=== PATIENT | female | born 1980 ===

== ENCOUNTER 2020-08-05 05:29 | Inpatient (IN) | payer OTHER ==
[2020-08-05] MEDS ORDERED: MIDAZOLAM HCL 2 MG/2 ML SINGLE DOSE VIAL ONE ×2 (07:40→09:39)
[2020-08-05] MEDS ORDERED: PROPOFOL 20 ML ONE ×3 (07:40→09:10)
[2020-08-05] MEDS ORDERED: SUCCINYLCHOLINE CHLORIDE 200 MG/10 ML SYRINGE ONE (07:40)
--- NOTE | 2020-08-05 08:21 | HP ---
History & Physical Update - History History: No Change - Physical Physical: No Change - Assessment Assessment: No Change - Plan Plan: No Change (Hysteroscopy, excision of uterine mass, D&C)
[2020-08-05] MEDS ORDERED: ceFAZolin SODIUM 1 GM VIAL IVPB ONE (08:40)
[2020-08-05] MEDS ORDERED: ceFAZolin SODIUM 1 GM VIAL ONE (08:52)
[2020-08-05] MEDS ORDERED: DEXAMETHASONE SOD PHOSPHATE 4 MG/1 ML VIAL ONE (08:52)
[2020-08-05] MEDS ORDERED: ALBUTEROL SO4 HFA INHALER IH ONE ×2 (09:43→09:50)
--- NOTE | 2020-08-05 09:43 | OP ---
Operative Note - Note: Operative Date: 08/05/20 Pre-Operative Diagnosis: Oligomenorrhea, morbid obesity, endometrial polyps Operation: Hysteroscopy, polypectomy, D&C Findings: Endometrial polyps Post-Operative Diagnosis: Same as Pre-op Surgeon: Kenneth Condon Anesthesiologist/GRINDING SUPERVISOR: Cyn Mcmanus Anesthesia: General Specimens Removed: Endometrial polyps, endometrial curettings Estimated Blood Loss (mls): 5 Blood Volume Replaced (mls): 0 Fluid Volume Replaced (mls): 500 Operative Report Dictated: Yes
[2020-08-05] MEDS ORDERED: ALBUTEROL SO4 0.083% IH SOL 2.5 MG/3 ML VIAL.NEB. NEB ONE ×6 (09:44→11:50)
[2020-08-05] MEDS: ALBUTEROL SO4 0.083% IH SOL 2.5 MG/3 ML VIAL.NEB. NEB SCH ×2 (09:50→10:05)
[2020-08-05] MEDS ORDERED: ACETAMINOPHEN INJECTION 100 ML IVPB ONE (10:33)
[2020-08-05] MEDS ORDERED: ONDANSETRON 4 MG/2 ML VIAL ONE ×2 (10:33→10:52)
[2020-08-05] MEDS ORDERED: methylPREDNISolone NA SUCC 125 MG/2 ML VIAL IVPB ONE (10:35)
[2020-08-05] MEDS ORDERED: methylPREDNISolone NA SUCC 125 MG/2 ML VIAL ONE (10:37)
[2020-08-05] MEDS ORDERED: ACETAMINOPHEN 1000 MG/100 ML VIAL (NON FORMULARY) IVPB ONE ×3 (10:40→23:18)
[2020-08-05] MEDS ORDERED: ONDANSETRON 4 MG/2 ML VIAL IVPUSH PRN (10:43)
[2020-08-05] MEDS ORDERED: oxyCODONE HCL 5 MG TABLET PO PRN (10:43)
[2020-08-05] MEDS ORDERED: ONDANSETRON 4 MG/2 ML VIAL IVPUSH ONE (10:45)
[2020-08-05] MEDS ORDERED: LACTATED RINGERS SOLUTION 1,000 ML IV SCH (10:45)
--- NOTE | 2020-08-05 11:43 | OP ---
DATE OF OPERATION: 08/05/2020 PREOPERATIVE DIAGNOSIS: Oligomenorrhea, morbid obesity, endometrial polyps. POSTOPERATIVE DIAGNOSIS: Oligomenorrhea, morbid obesity, endometrial polyps. PROCEDURE: Hysteroscopy, polypectomy, dilation and curettage. SURGEON: Kenneth Condon MD ANESTHESIOLOGIST: Cyn Mcmanus MD COMPLICATIONS: None. ESTIMATED BLOOD LOSS: 5 mL IV FLUIDS: 500 mL ANESTHESIA: General endotracheal. PATHOLOGY: Endometrial polyps, endometrial curettings. FINDINGS: Examination under anesthesia revealed a small mobile uterus. No pelvic or adnexal masses. Hysteroscopy revealed 3 or 4 endometrial polyps, otherwise normal uterine cavity. PROCEDURE: The patient was met preoperatively. Risks, benefits and alternatives of surgery were discussed in details. All questions were answered. The consent form was reviewed and discussed. The patient verbalized her understanding and requested to proceed with the surgery. The patient was brought to the OR with the IV running. She was placed on the surgical table in the supine position. The general endotracheal anesthesia was achieved without difficulty. The patient was then placed in a dorsal lithotomy position using adjustable Luis stirrups. She was examined under anesthesia with the findings as described above. The patient was then prepped and draped in the usual sterile fashion. A timeout was conducted as per standard protocol. A weighted speculum was introduced inside the vagina with good visualization of the cervix. The cervix was grasped with a single-tooth tenaculum. The cervical os was dilated to accommodate the size 23 Castro dilator. A Symphion hysteroscope was introduced inside the uterine cavity with the findings as described above. A Symphion resectoscope was then used to excise all of the endometrial polyps. The hysteroscope was then removed and endometrial curettage was performed. All of the tissue was sent to Pathology. The hysteroscope was once again placed inside the uterine cavity. A normal uterine cavity was visualized with good hemostasis. All of the instruments were then removed from the patient. Sponge, lap, instrument counts were correct. Good hemostasis was confirmed. The patient was returned to supine position and she was transferred to recovery room in stable condition. Hill [id number]
--- NOTE | 2020-08-05 12:15 | PN ---
Progress Note (short form) - Note Progress Note: Called to PACU for asthma exacerbation. PT had received decadron intr aoperatively and solucortef/nebulizer in PACU for severe bronchospasm. The bronchospasm had resolved for over an hour but acutely recurred. As she had already received a full dose of corticosteroids and was on nebulizer currently, decision was made to administer a small intravenous dose of epinephrine (10mcg) due to severe wheezing/bronchospasm. After 5-10min, the epinephrine took effect and the bronchospasm subsided substantially Pt's lung antoine cleared up significantly, and she also reported subjectively feeling "less tight" in the chest. Will speak with Dr Condon regarding pt status and need for possible admission.
[2020-08-05] MEDS ORDERED: ALBUTEROL SO4 2.5/IPRATROPIUM 0.5 INH SOL 3 ML VIAL.NEB. NEB SCH (12:30)
[2020-08-05] MEDS ORDERED: methylPREDNISolone NA SUCC 40 MG/1 ML VIAL IVPUSH SCH (14:15)
[2020-08-05] MEDS ORDERED: methylPREDNISolone NA SUCC 40 MG/1 ML VIAL IVPB ONE (14:15)
--- NOTE | 2020-08-05 15:55 | EKG ---
Test Reason : Blood Pressure : / mmHG Vent. Rate : 086 BPM Atrial Rate : 086 BPM P-R Int : 156 ms QRS Dur : 074 ms QT Int : 356 ms P-R-T Axes : 068 043 038 degrees QTc Int : 426 ms NORMAL SINUS RHYTHM POSSIBLE LEFT ATRIAL ENLARGEMENT ST ELEVATION, CONSIDER EARLY REPOLARIZATION BORDERLINE ECG NO PREVIOUS ECGS AVAILABLE Confirmed by MEE ACOSTA MD ([id number]) on 08/05/2020 3:55:01 PM Referred By: Confirmed By:MEE ACOSTA MD
[2020-08-05] MEDS ORDERED: methylPREDNISolone NA SUCC 40 MG/1 ML VIAL ONE (16:12)
[2020-08-05 16:53] LABS: BASO % 0.1 % (0-2.0); HEMATOCRIT 35.6 % (32.4-45.2); HEMOGLOBIN 11.7 GM/dL (10.7-15.3); LYMPH % 3.4 % (8-40); MCH 27.4 pg (25.7-33.7); MCHC 32.8 g/dl (32.0-36.0); MEAN CELL VOLUME 83.4 fl (80-96); MEAN PLT VOLUME 8.3 fl (7.5-11.1); MONO % 1.2 % (3.8-10.2); NEUT % 95.3 % (42.8-82.8); PLATELET COUNT 317 K/MM3 (134-434); RBC 4.26 M/mm3 (3.60-5.2); RDW 15.6 % (11.6-15.6); WHITE BLOOD COUNT 11.6 K/mm3 (4.0-10.0)
--- NOTE | 2020-08-05 17:10 | CON.PULM ---
Consult Consult Specialty:: PULM/CCM Referred by:: HUNTER Reason for Consultation:: SOB - History of Present Illness Chief Complaint: SOB History of Present Illness: 40 F, Intermittent Asthma. Managed by PRN Albuterol and more recently by Symbicort BID after she developed COVID19 infection February 2020. Received an outpatient course of ABX /steroids. Taken care of by Dr Hager. Recent PFTs prior to surgery but does not know re sults. Has been screened Negative for OSAS. Admitted for a D&C and polyp removal. Developed wheezing and possible stridor post op. Received decadron, Solumedrol, Solucortef, and Epinephrine. Currently feels clinically better. Does have some throat "soreness". No history of intubations. Unknown PEF. - History Source History Provided By: Patient Limitations to Obtaining History: No Limitations - Past Medical History Pulmonary: Yes: Asthma, Bronchitis. No: Cancer, COPD, O2 Dependent, Pneumonia, Previously Intubated, Pulmonary Embolus, Pulmonary Fibrosis, Sleep Apnea ...LMP: 07/12/20 - Smoking History Smoking history: Never smoked Have you smoked in the past 12 months: No Home Medications - Allergies Allergies/Adverse Reactions: Allergies Allergy/AdvReac Type Severity Reaction Status Date / Time shellfish derived Allergy Verified 08/05/20 07:34 Sulfa (Sulfonamide Allergy Verified 08/05/20 07:34 Antibiotics) sulfite Allergy Verified 08/05/20 07:34 IV CONTRAST Allergy Mild Uncoded 08/05/20 07:34 - Home Medications Home Medications: Ambulatory Orders Albuterol Sulfate Inhaler - [Ventolin Hfa Inhaler -] 1 puff IH PRN PRN 08/02/20 Budesonide/Formeterol Fumarate [SYMBICORT 160/4.5mcg -] 1 inh PO BID 08/02/20 Escitalopram Oxalate [Lexapro -] 20 mg PO HS 08/02/20 Pantoprazole Sodium 40 mg PO HS 08/02/20 Ursodiol 250 mg PO BID 08/02/20 hydrOXYzine PAMOATE [Vistaril -] 50 mg PO HS PRN 08/02/20 traZODone HCL [Trazodone HCl] 100 mg PO HS 08/02/20 metroNIDAZOLE [Flagyl -] 500 mg PO BID #14 tablet 08/05/20 Review of Systems - Review of Systems Constitutional: denies: Chills, Fever, Malaise, Night Sweats, Unintentional Wgt. Loss Eyes: reports: No Symptoms HENT: reports: No Symptoms Cardiovascular: reports: Shortness of Breath. denies: Chest Pain, Edema, Palpitations Respiratory: reports: Cough, SOB, Wheezing. denies: Hemoptysis, Orthopnea, PND, Snoring, SOB on Exertion Gastrointestinal: reports: No Symptoms Genitourinary: reports: No Symptoms Breasts: reports: No Symptoms Reported Musculoskeletal: reports: No Symptoms Integumentary: reports: No Symptoms Neurological: reports: No Symptoms Endocrine: reports: No Symptoms Hematology/Lymphatic: reports: No Symptoms Psychiatric: reports: No Symptoms Physical Exam Vital Sings: Vital Signs Temperature 98.9 F 08/05/20 09:45 Pulse Rate 79 08/05/20 15:00 Respiratory Rate 16 08/05/20 15:00 Blood Pressure 127/51 L 08/05/20 15:00 O2 Sat by Pulse Oximetry (%) 100 08/05/20 15:00 Constitutional: Yes: No Distress, Obese Eyes: Yes: Conjunctiva Clear, EOM Intact HENT: Yes: Atraumatic, Normocephalic Neck: Yes: Supple, Trachea Midline Cardiovascular: Yes: Regular Rate and Rhythm Respiratory: Yes: Cough, Diminished. No: Rales, Rhonchi, SOB, SOB on Exertion, Stridor, Tachypnea, Wheezes ...Inspection: Yes: WNL ...Clubbing: No Gastrointestinal: Yes: Normal Bowel Sounds, Soft, Abdomen, Obese Renal/: Yes: WNL Musculoskeletal: Yes: WNL Extremities: Yes: WNL Edema: No Peripheral Pulses WNL: Yes Integumentary: Yes: WNL Neurological: Yes: WNL, Alert, Oriented ...Motor Strength: WNL Psychiatric: Yes: WNL, Alert, Oriented Labs: CBC, BMP 08/05/20 15:30 Imaging - Results Chest X-ray: Report Reviewed, Image Reviewed Problem List - Problems (1) Acute exacerbation of extrinsic asthma Code(s): J45.901 - UNSPECIFIED ASTHMA WITH (ACUTE) EXACERBATION (2) Stridor Code(s): R06.1 - STRIDOR (3) Obesity Code(s): E66.9 - OBESITY, UNSPECIFIED Assessment/Plan Decadron BD TX PRN Symbicort BID Supplemental O2 as needed No indication for ABX. VTE prophylaxis Will follow Thank you. Dr Alves
[2020-08-05 17:18] LABS: ALBUMIN 3.2 g/dl (3.4-5.0); BILIRUBIN,TOTAL 0.3 mg/dL (0.2-1); BLOOD UREA NITROGEN 5.9 mg/dL (7-18); CALCIUM 8.9 mg/dL (8.5-10.1); CREATININE 0.8 mg/dL (0.55-1.3); POTASSIUM 4.1 mmol/L (3.5-5.1); TOT PROT 6.8 g/dl (6.4-8.2)
[2020-08-05 17:48] LABS: ANISOCYTOSIS 0; MACROCYTOSIS 0; PLATELET ESTIMATE NORMAL
[2020-08-05] MEDS: PANTOPRAZOLE 40 MG TABLET PO SCH (18:03)
[2020-08-05] MEDS: DEXAMETHASONE SOD PHOSPHATE 10 MG/1 ML VIAL IVPUSH SCH (18:06)
[2020-08-05 18:17] VITALS: BMI 38.1
--- NOTE | 2020-08-05 19:33 | HP ---
CHIEF COMPLAINT: SOB HISTORY OF PRESENT ILLNESS: 40 F h/o moderate asthma, obesity, COVID in 02/2020, depression, presents w/ SOB wheezing, s/p extubation for D&C. Patient presented with SOB/wheezing/cough after extubation, received Ancef reports remote h/o PCN allergy with angioedema/rash/wheezing. Patient received duonebs/steroids w/ improvement of SOB. Recent Travel: denies PAST MEDICAL HISTORY: as above PAST SURGICAL HISTORY: s/p D&C Social History: denies x3 Allergies shellfish derived Allergy (Verified 08/05/20 07:34) Sulfa (Sulfonamide Antibiotics) Allergy (Verified 08/05/20 07:34) sulfite Allergy (Verified 08/05/20 07:34) IV CONTRAST Allergy (Mild, Uncoded 08/05/20 07:34) PHYSICAL EXAMINATION Vital Signs - 24 hr 08/05/20 08/05/20 08/05/20 07:26 07:28 07:30 Temperature 98.6 F 98.6 F Pulse Rate 82 82 Respiratory 20 20 Rate Blood Pressure 142/78 142/78 O2 Sat by Pulse 100 100 100 Oximetry (%) 08/05/20 08/05/20 08/05/20 09:45 10:00 10:15 Temperature 98.9 F Pulse Rate 122 H 100 H 112 H Respiratory 90 H 24 H 24 H Rate Blood Pressure 131/71 130/71 O2 Sat by Pulse 90 L 95 95 Oximetry (%) 08/05/20 08/05/20 08/05/20 10:30 10:35 10:45 Temperature Pulse Rate 105 H 104 H 104 H Respiratory 22 H 20 21 H Rate Blood Pressure 135/61 132/70 136/62 O2 Sat by Pulse 100 100 100 Oximetry (%) 08/05/20 08/05/20 08/05/20 11:00 11:15 11:30 Temperature Pulse Rate 105 H 93 H 89 Respiratory 21 H 16 16 Rate Blood Pressure 131/77 135/53 L 124/57 L O2 Sat by Pulse 100 100 100 Oximetry (%) 08/05/20 08/05/20 08/05/20 11:45 11:50 12:00 Temperature Pulse Rate 90 108 H 118 H Respiratory 16 18 35 H Rate Blood Pressure 122/57 L 130/70 153/71 O2 Sat by Pulse 100 100 100 Oximetry (%) 08/05/20 08/05/20 08/05/20 12:05 12:10 12:15 Temperature Pulse Rate 112 H 112 H 95 H Respiratory 27 H 25 H 25 H Rate Blood Pressure 169/103 H 150/99 141/66 O2 Sat by Pulse 100 100 100 Oximetry (%) 08/05/20 08/05/20 08/05/20 12:30 12:45 13:00 Temperature Pulse Rate 91 H 100 H 103 H Respiratory 25 H 24 H 18 Rate Blood Pressure 137/80 138/104 H 134/66 O2 Sat by Pulse 100 100 100 Oximetry (%) 08/05/20 08/05/20 08/05/20 13:15 13:30 14:00 Temperature Pulse Rate 88 93 H 91 H Respiratory 19 20 18 Rate Blood Pressure 124/57 L 132/61 128/57 L O2 Sat by Pulse 100 100 100 Oximetry (%) 08/05/20 08/05/20 08/05/20 14:30 14:57 15:00 Temperature 98.2 F Pulse Rate 79 77 79 Respiratory 15 18 16 Rate Blood Pressure 123/51 L 112/50 L 127/51 L O2 Sat by Pulse 100 98 100 Oximetry (%) 08/05/20 08/05/20 08/05/20 15:30 16:00 16:15 Temperature Pulse Rate 80 86 82 Respiratory 16 18 18 Rate Blood Pressure 142/80 115/58 L 133/71 O2 Sat by Pulse 100 100 100 Oximetry (%) 08/05/20 08/05/20 08/05/20 16:30 17:00 18:20 Temperature 98.5 F Pulse Rate 78 88 Respiratory 18 18 Rate Blood Pressure 138/70 128/75 O2 Sat by Pulse 100 100 98 Oximetry (%) 08/05/20 18:32 Temperature 98.2 F Pulse Rate 77 Respiratory 18 Rate Blood Pressure 112/50 L O2 Sat by Pulse 98 Oximetry (%) GA AAox3, speaks in full sentences HEENT NC/AT, no nasal flaring, dry MM, dry cough, neck supple Chest diffuse wheezing b/l however adequate air entry, no increased WOB CVs S1, S2+, RRR Abd Soft, obese, NT, BS+ Ext no LE edema, no calf tenderness Laboratory Results - last 24 hr 08/05/20 08/05/20 08/05/20 06:35 06:35 15:30 WBC 11.6 H RBC 4.26 Hgb 11.7 Hct 35.6 MCV 83.4 MCH 27.4 MCHC 32.8 RDW 15.6 Plt Count 317 MPV 8.3 Absolute Neuts (auto) 11.1 H Neutrophils % 95.3 H D Neutrophils % (Manual) 77.0 Band Neutrophils % 19.0 Lymphocytes % 3.4 L D Lymphocytes % (Manual) 2.0 L Monocytes % 1.2 L D Monocytes % (Manual) 2 L Eosinophils % 0.0 D Eosinophils % (Manual) 0.0 Basophils % 0.1 Basophils % (Manual) 0.0 Myelocytes % (Man) 0 Promyelocytes % (Man) 0 Blast Cells % (Manual) 0 Nucleated RBC % 0 Metamyelocytes 0 Hypochromia 0 Platelet Estimate Normal Polychromasia 0 Poikilocytosis 0 Anisocytosis 0 Microcytosis 0 Macrocytosis 0 Sodium Potassium Chloride Carbon Dioxide Anion Gap BUN Creatinine Est GFR (CKD-EPI)AfAm Est GFR (CKD-EPI)NonAf Random Glucose Calcium Magnesium Total Bilirubin AST ALT Alkaline Phosphatase Total Protein Albumin Serum , Qual Negative Blood Type O POSITIVE Antibody Screen Negative 08/05/20 15:30 WBC RBC Hgb Hct MCV MCH MCHC RDW Plt Count MPV Absolute Neuts (auto) Neutrophils % Neutrophils % (Manual) Band Neutrophils % Lymphocytes % Lymphocytes % (Manual) Monocytes % Monocytes % (Manual) Eosinophils % Eosinophils % (Manual) Basophils % Basophils % (Manual) Myelocytes % (Man) Promyelocytes % (Man) Blast Cells % (Manual) Nucleated RBC % Metamyelocytes Hypochromia Platelet Estimate Polychromasia Poikilocytosis Anisocytosis Microcytosis Macrocytosis Sodium 140 Potassium 4.1 Chloride 107 Carbon Dioxide 26 Anion Gap 7 L BUN 5.9 L Creatinine 0.8 Est GFR (CKD-EPI)AfAm 108.39 Est GFR (CKD-EPI)NonAf 93.52 Random Glucose 151 H Calcium 8.9 Magnesium 2.0 Total Bilirubin 0.3 AST 22 ALT 22 Alkaline Phosphatase 86 Total Protein 6.8 Albumin 3.2 L Serum , Qual Blood Type Antibody Screen Home Medications Medication Instructions Recorded Albuterol Sulfate Inhaler - 1 puff IH PRN PRN 08/02/20 [Ventolin Hfa Inhaler -] Budesonide/Formeterol Fumarate 1 inh PO BID 08/02/20 [SYMBICORT 160/4.5mcg -] Escitalopram Oxalate [Lexapro -] 20 mg PO HS 08/02/20 Pantoprazole Sodium 40 mg PO HS 08/02/20 Ursodiol 250 mg PO BID 08/02/20 hydrOXYzine PAMOATE [Vistaril -] 50 mg PO HS PRN 08/02/20 traZODone HCL [Trazodone HCl] 100 mg PO HS 08/02/20 metroNIDAZOLE [Flagyl -] 500 mg PO BID #14 tablet 08/05/20 Current Medications Generic Name Dose Route Start Last Admin Trade Name Freq PRN Reason Stop Dose Admin Albuterol/Ipratropium 1 amp 08/05/20 14:08 Duoneb - NEB Q4H PRN SHORTNESS OF BREATH Budesonide/Formoterol Fumarate 2 puff 08/05/20 22:00 Symbicort 160/4.5mcg - IH BID LUPE Dexamethasone Sodium Phosphate 10 mg 08/05/20 18:00 08/05/20 18:06 Decadron Injection - IVPUSH 10 mg Q8H-IV LUPE Administration Fentanyl 50 mcg 08/05/20 10:43 Sublimaze Injection - IVPUSH [id number] PRN PAIN-PACU ORDER X 4 DOSES ONLY Ondansetron HCl 4 mg 08/05/20 10:43 08/05/20 10:30 Zofran Injection IVPUSH 4 mg Q6H PRN Administration NAUSEA AND/OR VOMITING Oxycodone HCl 5 mg 08/05/20 10:43 08/05/20 18:52 Roxicodone - PO 5 mg Q4H PRN Administration PAIN LEVEL 1-5 Pantoprazole Sodium 40 mg 08/05/20 14:15 08/05/20 18:03 Protonix - PO Not Given DAILY LUPE ASSESSMENT/PLAN: 40 F Moderate persistent asthma with acute exacerbation Allergic rhinitis GERD Obesity r/o NAYLA Plan: Duonebs, IV steroids, monitor w/ serial peak flows No abx (avoid cephalosporins for suspected cross-rxn allergy) IV benadryl NPO for now Pulmonary evaluation Family Medical History Family History: As Documented Visit type - Emergency Visit Emergency Visit: No - New Patient This patient is new to me today: Yes Date on this admission: 08/05/20 - Critical Care Critical Care patient: No
[2020-08-05] MEDS: BUDESONIDE/FORMETEROL FUMARATE 160/4.5 mcg INHALER IH SCH (21:09)
[2020-08-06] MEDS: DEXAMETHASONE SOD PHOSPHATE 10 MG/1 ML VIAL IVPUSH SCH ×2 (01:06→10:51)
[2020-08-06] MEDS: ALBUTEROL SO4 2.5/IPRATROPIUM 0.5 INH SOL 3 ML VIAL.NEB. NEB PRN ×2 (05:00→08:12)
[2020-08-06 08:07] LABS: HEMOGLOBIN 11.1 GM/dL (10.7-15.3); LYMPH % 4.6 % (8-40); MCH 26.4 pg (25.7-33.7); MCHC 31.7 g/dl (32.0-36.0); MEAN CELL VOLUME 83.3 fl (80-96); MEAN PLT VOLUME 8.1 fl (7.5-11.1); MONO % 1.5 % (3.8-10.2); NEUT % 93.9 % (42.8-82.8); PLATELET COUNT 303 K/MM3 (134-434); RDW 15.4 % (11.6-15.6); WHITE BLOOD COUNT 11.1 K/mm3 (4.0-10.0)
[2020-08-06] MEDS ORDERED: ACETAMINOPHEN 500 MG TABLET (FP) PO ONE ×2 (08:33→14:30)
[2020-08-06 08:37] LABS: ALBUMIN 3.1 g/dl (3.4-5.0); BLOOD UREA NITROGEN 6.6 mg/dL (7-18); CALCIUM 8.7 mg/dL (8.5-10.1); CREATININE 0.7 mg/dL (0.55-1.3); POTASSIUM 4.2 mmol/L (3.5-5.1); TOT PROT 6.8 g/dl (6.4-8.2)
[2020-08-06 08:40] LABS: BILIRUBIN,TOTAL 0.8 mg/dL (0.2-1)
--- NOTE | 2020-08-06 09:25 | PN ---
Progress Note (short form) - Note Progress Note: Anesthesiologist post op note, POD#1 S/P Hysteroscopy, polypectomy, D&C Under GETA. Patient with history of Asthma. Had an episod of broncho spasm/Asthma exacerbation post op in PACU, which was resolved on steroids and low dose epi. Seen by mold sheet cleaner. Patient seen and examined. VSS. BBS, clear no wheezing. Sitting in the bed. Answered all patients questions and addressed concerns. Reassured. Stable today. Will follow up with her mold sheet cleaner in out patient setting.
[2020-08-06] MEDS: BUDESONIDE/FORMETEROL FUMARATE 160/4.5 mcg INHALER IH SCH (10:50)
[2020-08-06] MEDS: PANTOPRAZOLE 40 MG TABLET PO SCH (10:51)
[2020-08-06 11:55] LABS: ANISOCYTOSIS 0; MACROCYTOSIS 0; OVALOCYTE 1+; PLATELET ESTIMATE NORMAL
--- NOTE | 2020-08-06 13:52 | DS ---
Physical Exam: SUBJECTIVE: Patient seen and examined at bedside. No acute events reported overnight. This morning, patient reports resolution of her symptoms. OBJECTIVE: Vital Signs Period Temp Pulse Resp BP Sys/[place] Pulse Ox Last 24 Hr 98.0 F-98.7 F 76-112 15-20 104-142/50-80 96-100 PHYSICAL EXAM GENERAL: AAOx3, in no acute distress HEENT: NCAT, PERRLA, EOMI, sclera anicteric, conjunctiva clear, oropharynx clear w/o exudates. MMM. NECK: Normal ROM, supple, no lymphadenopathy, JVD, or masses LUNGS: CTABL no wheezes/ rhonchi/ rales. No distress, speaks in full sentences. No increased work of breathing. HEART: RRR, normal S1 S2, no M/R/G, peripheral pulses 2+ and equal b/l ABDOMEN: Soft, NTND, + BS. No guarding or rebound. No hepatomegaly or splenomegaly. MSK: ROM WNL EXTREMITIES: Normal inspection. No peripheral edema. No clubbing or cyanosis. NEUROLOGICAL: CN II-XII intact. Normal speech, normal gait, no focal sensorimotor deficits. SKIN: Warm, Dry, normal turgor, no rashes or lesions noted LABS Laboratory Results - last 24 hr CBC, BMP 08/06/20 07:00 08/06/20 07:00 08/05/20 08/05/20 08/06/20 15:30 15:30 07:00 WBC 11.6 H 11.1 H RBC 4.26 4.20 Hgb 11.7 11.1 Hct 35.6 35.0 MCV 83.4 83.3 MCH 27.4 26.4 MCHC 32.8 31.7 L RDW 15.6 15.4 Plt Count 317 303 MPV 8.3 8.1 Absolute Neuts (auto) 11.1 H 10.4 H Neutrophils % 95.3 H D 93.9 H Neutrophils % (Manual) 77.0 89.0 H Band Neutrophils % 19.0 6.0 Lymphocytes % 3.4 L D 4.6 L D Lymphocytes % (Manual) 2.0 L 3.0 L D Monocytes % 1.2 L D 1.5 L Monocytes % (Manual) 2 L 0 L D Eosinophils % 0.0 D 0.0 Eosinophils % (Manual) 0.0 0.0 Basophils % 0.1 0.0 Basophils % (Manual) 0.0 0.0 Myelocytes % (Man) 0 0 Promyelocytes % (Man) 0 0 Blast Cells % (Manual) 0 0 Nucleated RBC % 0 0 Metamyelocytes 0 0 Hypochromia 0 0 Platelet Estimate Normal Normal Polychromasia 0 0 Poikilocytosis 0 1+ Anisocytosis 0 0 Microcytosis 0 0 Macrocytosis 0 0 Ovalocytes 1+ Aldrich Cells 1+ Sodium 140 Potassium 4.1 Chloride 107 Carbon Dioxide 26 Anion Gap 7 L BUN 5.9 L Creatinine 0.8 Est GFR (CKD-EPI)AfAm 108.39 Est GFR (CKD-EPI)NonAf 93.52 Random Glucose 151 H Hemoglobin A1c % Calcium 8.9 Magnesium 2.0 Total Bilirubin 0.3 AST 22 ALT 22 Alkaline Phosphatase 86 Total Protein 6.8 Albumin 3.2 L TSH 08/06/20 08/06/20 07:00 07:00 WBC RBC Hgb Hct MCV MCH MCHC RDW Plt Count MPV Absolute Neuts (auto) Neutrophils % Neutrophils % (Manual) Band Neutrophils % Lymphocytes % Lymphocytes % (Manual) Monocytes % Monocytes % (Manual) Eosinophils % Eosinophils % (Manual) Basophils % Basophils % (Manual) Myelocytes % (Man) Promyelocytes % (Man) Blast Cells % (Manual) Nucleated RBC % Metamyelocytes Hypochromia Platelet Estimate Polychromasia Poikilocytosis Anisocytosis Microcytosis Macrocytosis Ovalocytes Aldrich Cells Sodium 141 Potassium 4.2 Chloride 109 H Carbon Dioxide 24 Anion Gap 9 BUN 6.6 L Creatinine 0.7 Est GFR (CKD-EPI)AfAm 127.39 Est GFR (CKD-EPI)NonAf 109.91 Random Glucose 145 H Hemoglobin A1c % 4.7 Calcium 8.7 Magnesium Total Bilirubin 0.8 AST 18 ALT 19 Alkaline Phosphatase 82 Total Protein 6.8 Albumin 3.1 L TSH 0.12 L HOSPITAL COURSE: 40 y/o female with PMX moderate asthma, obesity, COVID in 03/11, depression presenting with SOB, wheezing, and stridor s/p extubation after a D&C. Patient received Ancef during surgery and has history of PCN allergy. Patient was admitted for a reaction to cephalosporins , VS asthma exacerbation Vs throat edema after intubation. Patient's symptoms improved with bronchodilators, epinephrine, and steroids. Patient was discharged on a 12 day steroid taper and was told to continue her home meds of symbicort and ventolin at home. Patient was also told to f/u with Pulm and [facility] within a week. Patient was d/c by [facility] with Flagyl ordered by them. Date of Admission:08/05/20 Date of Discharge: 08/06/20 Minutes to complete discharge: 36 Discharge Summary Problems reviewed: Yes Reason For Visit: ENDOMETRIAL POLYP Current Active Problems Acute exacerbation of extrinsic asthma (Acute) Obesity (Acute) Stridor (Acute) Condition: Good - Instructions Diet, Activity, Other Instructions: Dr. Kenneth Condon Hand [employer] Winder discharge instructions Physical activity Resume your normal everyday activity as tolerated no heavy lifting or exercise until seen by your surgeon. You may walk unlimited elizabeth of and climb stairs. You may resume driving the car when you feel safe and comfortable behind the wheel. No sexual activity as instructed by Dr. Condon. Wound care If you have a bandage, leave it on, and keep dry for 48-72 hours. After that time discard the outer bandage. If they are tapes on the skin under the out of bandage leave them in place. They will peel off in the next 7 to 10 days. Do Not Peel them off. You may shower the day after surgery. If there are tapes present on the skin, you may shower over them. Diet There are no dietary restrictions. Eat healthy, high-fiber foods. Drink 6 to 8 glasses of liquid each day. This will assist in keeping your bowels are regular. Pain management You may take Tylenol or acetaminophen or Ibuprofen (for example, Motrin, Advil etc.) from my pain prescription medication is ordered should be taken as prescribed for moderate to severe pain. Call Dr. Condon for any of the following: Severe pain not relieved by medication Fever of 101 or higher Excessive bleeding or drainage on dressing Inability to urinate Call the office at [phone] for an appointment in 14 days. Medical Discharge Instructions: Your visit: You were seen by the medical team for an asthma exacerbation you had after your procedure. You were treated with steroids and epinephrine with improvement of your symptoms. Medications changes: -We started you on a 12 day Prednisone steroid taper. Please take the steroid taper as follows: -Day 1: 08/07/2020, please take 8 pills of Prednisone (5 mg each pill) for a daily total of 40 mg. -Day 2: 08/08/2020, please take 8 pills of Prednisone (5 mg each pill) for a daily total of 40 mg. -Day 3: 08/09/2020, please take 7 pills of Prednisone (5 mg each pill) for a daily total of 35 mg. -Day 4: 08/10/2020, please take 7 pills of Prednisone (5 mg each pill) for a daily total of 35 mg. -Day 5: 08/11/2020, please take 6 pills of Prednisone (5 mg each pill) for a daily total of 30 mg. -Day 6: 08/12/2020, please take 6 pills of Prednisone (5 mg each pill) for a daily total of 30 mg. -Day 7: 08/13/2020, please take 5 pills of Prednisone (5 mg each pill) for a daily total of 25 mg. -Day 8: 08/14/2020, please take 4 pills of Prednisone (5 mg each pill) for a daily total of 20 mg. -Day 9: 08/15/2020, please take 4 pills of Prednisone (5 mg each pill) for a daily total of 20 mg. -Day 10: 08/16/2020, please take 3 pills of Prednisone (5 mg each pill) for a daily total of 15 mg. -Day 11: 08/17/2020, please take 2 pills of Prednisone (5 mg each pill) for a daily total of 10 mg. -Day 12: 08/18/2020, please take 1 pill of Prednisone (5 mg each pill) for a daily total of 5 mg. This will be your final pill. -Continue to take all other home medications as prescribed. Follow up: - Please follow-up with your Network Coordinator, Dr. Alves, in 1 week. - Visit with your Primary Care Provider in 2 weeks. If you do not have a primary care provider you may make an appointment with Dr. Painting at the [facility] clinic located at [address] [place] [address] ([phone]). Additional Instructions: -You are being discharged to your home. -Please return to the Emergency Department if you experience worsening pain, fevers, chills, shortness of breath, or chest pain, or if you experience any worsening, new or concerning symptoms. Referrals: Hay Pratt MD [Staff Physician] - 2 Weeks Kenneth Condon MD [Staff Physician] - 1 Week Loco Alves MD [Staff Physician] - 1 Week Disposition: HOME - Home Medications Comprehensive Discharge Medication List: Ambulatory Orders Albuterol Sulfate Inhaler - [Ventolin HFA Inhaler -] 1 puff IH PRN PRN 08/02/20 Budesonide/Formeterol Fumarate [SYMBICORT 160/4.5mcg -] 1 inh PO BID 08/02/20 Escitalopram Oxalate [Lexapro -] 20 mg PO HS 08/02/20 Pantoprazole Sodium 40 mg PO HS 08/02/20 Ursodiol 250 mg PO BID 08/02/20 hydrOXYzine PAMOATE [Vistaril -] 50 mg PO HS PRN 08/02/20 traZODone HCL [Trazodone HCl] 100 mg PO HS 08/02/20 metroNIDAZOLE [Flagyl -] 500 mg PO BID #14 tablet 08/05/20 predniSONE [Deltasone -] See Taper PO ASDIR #60 tab 08/06/20 This patient is new to me today: Yes Date on this admission: 08/06/20 Emergency Visit: No Critical Care patient: No - Discharge Referral Referred to [facility] Med [facility] No ATTENDING PHYSICIAN STATEMENT I saw and evaluated the patient. I reviewed the resident's note and discussed the case with the resident. I agree with the resident's findings and plan as documented. SUBJECTIVE: OBJECTIVE: ASSESSMENT AND PLAN:
--- NOTE | 2020-08-06 15:01 | PN ---
Teaching Attending Note Name of Resident: Celeste Painting ATTENDING PHYSICIAN STATEMENT I saw and evaluated the patient. I reviewed the resident's note and discussed the case with the resident. I agree with the resident's findings and plan as documented. SUBJECTIVE: seen at around 10 am no fever or chills , no SOB , no wheezing , no chest heaviness. she has no stridor, she feels much better , than before she reports what sounds like angioedema to PCN. OBJECTIVE: NAd, CV:RRR Lungs: CTAB, good air entry Abd:soft, NT, ND , NL BS Ext : No edema or erytehma HEENT: MMM, bruises and erythema in oropharynx, no exudate and no edema . No stridor ASSESSMENT AND PLAN: 40 y/o lady with D&C yesterday who presented with SOB , and reported stridor. ? reaction to cephalosporins , VS asthma exacerbation Vs throat edema after intubation - sx imrpoved - cont steroids which will help asthma and above DDx - taper has symbicort and ventolin at home f/u with pulm. she was d/c by capsule filler . maryan ordered per them
--- NOTE | 2020-08-06 15:05 | PN ---
Progress Note (short form) - Note Progress Note: Feels overall much improved. Still with a "slight" sore throat. No wheezing since 2PM yesterday. Intake & Output 08/03/20 08/04/20 08/05/20 08/06/20 23:59 23:59 23:59 23:59 Intake Total 1600 Output Total 25 Balance 1575 Weight 279 lb 8 oz Last Vital Signs Temp Pulse Resp BP Pulse Ox 98.0 F 112 H 20 134/65 100 08/06/20 09:18 08/06/20 09:18 08/06/20 09:18 08/06/20 09:18 08/06/20 09:18 Active Medications Albuterol/Ipratropium (Duoneb -) 1 amp NEB Q4H PRN PRN Reason: SHORTNESS OF BREATH Last Admin: 08/06/20 08:12 Dose: 1 amp Documented by: Amino Acids (Prosource No Carb Liquid Pkt) 30 ml PO BID@0800,1730 [facility] Budesonide/Formoterol Fumarate (Symbicort 160/4.5mcg -) 2 puff IH BID [facility] Last Admin: 08/06/20 10:50 Dose: 2 puff Documented by: Dexamethasone Sodium Phosphate (Decadron Injection -) 10 mg IVPUSH Q8H-IV [facility] Last Admin: 08/06/20 10:51 Dose: 10 mg Documented by: Fentanyl (Sublimaze Injection -) 50 mcg IVPUSH [id number] PRN PRN Reason: PAIN-PACU ORDER X 4 DOSES ONLY Ondansetron HCl (Zofran Injection) 4 mg IVPUSH Q6H PRN PRN Reason: NAUSEA AND/OR VOMITING Last Admin: 08/05/20 10:30 Dose: 4 mg Documented by: Oxycodone HCl (Roxicodone -) 5 mg PO Q4H PRN PRN Reason: PAIN LEVEL 1-5 Last Admin: 08/05/20 18:52 Dose: 5 mg Documented by: Pantoprazole Sodium (Protonix -) 40 mg PO DAILY [facility] Last Admin: 08/06/20 10:51 Dose: 40 mg Documented by: Constitutional: Yes: No Distress, Obese Eyes: Yes: Conjunctiva Clear, EOM Intact HENT: Yes: Atraumatic, Normocephalic Neck: Yes: Supple, Trachea Midline Cardiovascular: Yes: Regular Rate and Rhythm Respiratory: Yes: Cough, Diminished. No: Rales, Rhonchi, SOB, SOB on Exertion, Stridor, Tachypnea, Wheezes ...Inspection: Yes: WNL ...Clubbing: No Gastrointestinal: Yes: Normal Bowel Sounds, Soft, Abdomen, Obese Renal/: Yes: WNL Musculoskeletal: Yes: WNL Extremities: Yes: WNL Edema: No Peripheral Pulses WNL: Yes Integumentary: Yes: WNL Neurological: Yes: WNL, Alert, Oriented ...Motor Strength: WNL Psychiatric: Yes: WNL, Alert, Oriented Labs: Laboratory Results - last 24 hr 08/05/20 08/05/20 08/06/20 15:30 15:30 07:00 WBC 11.6 H 11.1 H RBC 4.26 4.20 Hgb 11.7 11.1 Hct 35.6 35.0 MCV 83.4 83.3 MCH 27.4 26.4 MCHC 32.8 31.7 L RDW 15.6 15.4 Plt Count 317 303 MPV 8.3 8.1 Absolute Neuts (auto) 11.1 H 10.4 H Neutrophils % 95.3 H D 93.9 H Neutrophils % (Manual) 77.0 89.0 H Band Neutrophils % 19.0 6.0 Lymphocytes % 3.4 L D 4.6 L D Lymphocytes % (Manual) 2.0 L 3.0 L D Monocytes % 1.2 L D 1.5 L Monocytes % (Manual) 2 L 0 L D Eosinophils % 0.0 D 0.0 Eosinophils % (Manual) 0.0 0.0 Basophils % 0.1 0.0 Basophils % (Manual) 0.0 0.0 Myelocytes % (Man) 0 0 Promyelocytes % (Man) 0 0 Blast Cells % (Manual) 0 0 Nucleated RBC % 0 0 Metamyelocytes 0 0 Hypochromia 0 0 Platelet Estimate Normal Normal Polychromasia 0 0 Poikilocytosis 0 1+ Anisocytosis 0 0 Microcytosis 0 0 Macrocytosis 0 0 Ovalocytes 1+ Debbi Cells 1+ Sodium 140 Potassium 4.1 Chloride 107 Carbon Dioxide 26 Anion Gap 7 L BUN 5.9 L Creatinine 0.8 Est GFR (CKD-EPI)AfAm 108.39 Est GFR (CKD-EPI)NonAf 93.52 Random Glucose 151 H Hemoglobin A1c % Calcium 8.9 Magnesium 2.0 Total Bilirubin 0.3 AST 22 ALT 22 Alkaline Phosphatase 86 Total Protein 6.8 Albumin 3.2 L TSH 08/06/20 08/06/20 07:00 07:00 WBC RBC Hgb Hct MCV MCH MCHC RDW Plt Count MPV Absolute Neuts (auto) Neutrophils % Neutrophils % (Manual) Band Neutrophils % Lymphocytes % Lymphocytes % (Manual) Monocytes % Monocytes % (Manual) Eosinophils % Eosinophils % (Manual) Basophils % Basophils % (Manual) Myelocytes % (Man) Promyelocytes % (Man) Blast Cells % (Manual) Nucleated RBC % Metamyelocytes Hypochromia Platelet Estimate Polychromasia Poikilocytosis Anisocytosis Microcytosis Macrocytosis Ovalocytes [place] Cells Sodium 141 Potassium 4.2 Chloride 109 H Carbon Dioxide 24 Anion Gap 9 BUN 6.6 L Creatinine 0.7 Est GFR (CKD-EPI)AfAm 127.39 Est GFR (CKD-EPI)NonAf 109.91 Random Glucose 145 H Hemoglobin A1c % 4.7 Calcium 8.7 Magnesium Total Bilirubin 0.8 AST 18 ALT 19 Alkaline Phosphatase 82 Total Protein 6.8 Albumin 3.1 L TSH 0.12 L Imaging - Results Chest X-ray: Report Reviewed, Image Reviewed Problem List - Problems (1) Acute exacerbation of extrinsic asthma Code(s): J45.901 - UNSPECIFIED ASTHMA WITH (ACUTE) EXACERBATION (2) Stridor Code(s): R06.1 - STRIDOR (3) Obesity Code(s): E66.9 - OBESITY, UNSPECIFIED Assessment/Plan Symbicort BID No indication for ABX. There is Pulmonary contraindication for DC home. The patient will follow Dr Hager. Dr Alves Problem List - Problems (1) Acute exacerbation of extrinsic asthma Code(s): J45.901 - UNSPECIFIED ASTHMA WITH (ACUTE) EXACERBATION (2) Stridor Code(s): R06.1 - STRIDOR (3) Obesity Code(s): E66.9 - OBESITY, UNSPECIFIED
[2020-08-06 15:16] VITALS: BP 120/69; PULSE 78; TEMP 99.1
[2020-08-06] MEDS ORDERED: AMINO ACIDS/PROTEIN HYDROLYS 30 ML LIQUID.PKT PO SCH (17:30)
--- NOTE | 2020-08-07 13:07 | PATH ---
Surgical Pathology Report Patient Name: ALEXSANDER WAN Med. Rec. #: [id number] /Age/Gender: 1980 (Age: 40) / F Account: [id number] Location: [facility] MED/SURG Taken: 08/05/2020 Received: 08/05/2020 Reported: 08/07/2020 Physicians: Kenneth Condon M.D. Specimen(s) Received A: ENDOMETRIAL CURETTINGS B: ENDOMETRIAL POLYPS Clinical History Endometrial polyp Final Diagnosis A. ENDOMETRIAL CURETTINGS: FRAGMENTS OF SECRETORY TYPE ENDOMETRIUM. B. ENDOMETRIAL POLYPS, D&C.: ENDOMETRIAL POLYPS. 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 FRAGMENTS OF SECRETORY TYPE ENDOMETRIUM. Electronically Signed Kristen Ponce M.D. Gross Description A. Received in formalin, labeled "endometrial curettings" are multiple dark brown portions of soft tissue measuring 1.0 x 1.0 x 0.2 cm in aggregate. The specimens are submitted in toto in one cassette. B. Received in formalin, labeled "endometrial polyp" are multiple langley, irregular portions of soft tissue measuring 4.0 x 4.0 x 0.4 cm. in aggregate. The specimens are entirely submitted in two cassettes.
== END 2020-08-06 16:15 | disposition home or self-care (01) | DRG 743 ==
LOC: JASU-SURG 05:29 → J2C 14:06 → J8W 17:59
PROVIDERS: ATTEND Internal Medicine
PROC: 0UJD8ZZ Inspection of Uterus and Cervix, Via Natural or Artificial Opening Endoscopic (ICD-10-PCS; 2020-08-05)
PROC: 0UB98ZZ Excision of Uterus, Via Natural or Artificial Opening Endoscopic (ICD-10-PCS; principal; 2020-08-05 08:00)
PROC: 0UDB8ZZ Extraction of Endometrium, Via Natural or Artificial Opening Endoscopic (ICD-10-PCS; 2020-08-05 08:00)
DX: N84.0 Polyp of corpus uteri (principal); N91.5 Oligomenorrhea, unspecified; E66.9 Obesity, unspecified; Z68.38 Body mass index [BMI] 38.0-38.9, adult; K21.9 Gastro-esophageal reflux disease without esophagitis
CPT/HCPCS: 36415; 71045-TC-FY; 80053; 83036; 83735; 84443; 84703; 85025; 86850; 86900; 86901; 88305-TC; 93005; 93010; 94640; 94760; J0131; J1100